=== PATIENT | female | born 1985 | race Caucasian/White ===

== ENCOUNTER 2019-04-21 01:24 | Inpatient (IN) | payer BC ==
[2019-04-21 02:07] VITALS: BMI 29.4
[2019-04-21 02:42] LABS: Hemoglobin 12.1 g/dL (12.0-16.0); Mean Corpuscular HGB CONC 32.4 g/dL (32.0-36.0); Mean Corpuscular Hemoglobin 27.7 pg (27.0-31.0); Mean Corpuscular Volume 85.7 fL (78.0-98.0); Mean Platelet Volume 11.3 fL (7.4-10.4); Platelet Count 171 thou/uL (130-400); RBC Distribution Width 16.6 % (11.5-14.5); Red Blood Cell (RBC) Count 4.35 mill/uL (4.20-5.40)
[2019-04-21] MEDS ORDERED: Ondansetron PF 4 MG/2 ML Vial IVP PRN ×2 (02:49→13:41)
[2019-04-21] MEDS ORDERED: Butorphanol Tartrate 1 MG/ML VIAL SLOW IVP PRN (02:49)
[2019-04-21] MEDS ORDERED: Promethazine HCl 25 MG/ML VIAL IM PRN ×2 (02:49→13:41)
[2019-04-21] MEDS ORDERED: hydrALAZINE 20 MG/ML VIAL SLOW IVP PRN ×2 (02:49→23:36)
[2019-04-21] MEDS ORDERED: Lactated Ringer's 1,000 ML IV SCH ×2 (02:49)
[2019-04-21] MEDS ORDERED: Acetaminophen 500 MG TAB PO PRN (02:49)
[2019-04-21] MEDS ORDERED: Misoprostol 200 MCG TAB RC PRN (03:00)
[2019-04-21] MEDS ORDERED: Methylergonovine 0.2 MG/ML VIAL IM PRN (03:00)
[2019-04-21] MEDS ORDERED: Ibuprofen 800 MG TAB PO PRN (03:00)
[2019-04-21] MEDS ORDERED: NS w/ Oxytocin 10 units 500 ML IV SCH ×2 (03:00)
[2019-04-21] MEDS ORDERED: NS / Oxytocin 40 units/1000ml 1,000 ML IV SCH ×2 (03:00→23:36)
[2019-04-21] MEDS ORDERED: Lidocaine 1% (PF) 30 ML VIAL SC PRN (03:00)
[2019-04-21 03:19] LABS: Hep B Surf Ag Non-Reactive S/CO (NonReactive)
[2019-04-21 05:41] LABS: Syphilis Antibody Nonreactive (Nonreactive); Syphilis Antibody Index 0.04 S/CO (<1.00 Non-Reactive)
--- NOTE | 2019-04-21 06:28 | PDOC.LDHP ---
Labor and Delivery H&P Chief complaint: contractions, loss of fluid (SROM at 0015 this AM) HPI: Was asleep when water broke at home. Contractions started soon after. Current gestational age (weeks): 39 Due date: 04/27/19 Dating criteria: last menstrual period, first trimester ultrasound Grav: 2 Para: 1 Current complications: none Abnormal US findings: No Current medications: pre- vitamins Previous surgical history: none Allergies/Adverse Reactions: Allergies Allergy/AdvReac Type Severity Reaction Status Date / Time No Known Allergies Allergy Unverified 04/21/19 02:00 Social history: none - Physical Exam Vital signs reviewed and normal: yes General: NAD, resting, breathing through contractions Heart: RRR Lungs: CTAB Abdomen: gravid Extremeties: no edema FHT: category 1 [place] contractions every: 3 minutes - Vaginal Exam cm dilated: 8 Effacement: 90% Station: 0 - OB Labs Blood type: B RH: positive Antibody Screen: negative HIV: negative RPR: negative HEPSAg: negative 1 hour GCT: negative GBS: negative Urine drug screen: not done Rubella: immune - Assessment L&D Assessment: term patient in labor - Plan Plan: admit to L&D, labor augmentation if indicated
[2019-04-21] MEDS ORDERED: Fentanyl 4 mcg/Bup 0.1% Cadd 100 ML ONE (12:52)
[2019-04-21] MEDS ORDERED: Lidocaine 1.5%/Epinephrine 1:200,000 5 ML AMPUL IJ ONE (13:29)
[2019-04-21] MEDS ORDERED: diphenhydrAMINE 50 MG/ML VIAL IVP PRN (13:41)
[2019-04-21] MEDS ORDERED: Lactated Ringer's 500 ML IV PRN (13:41)
[2019-04-21] MEDS ORDERED: Acetaminophen 325 MG TAB PO PRN (13:41)
[2019-04-21] MEDS ORDERED: ePHEDrine/0.9% NaCl/PF SYRINGE 50 mg/10 ml SLOW IVP PRN (13:41)
[2019-04-21] MEDS ORDERED: Naloxone HCl 0.4 mg/ml Vial IVP PRN ×2 (13:41)
[2019-04-21] MEDS ORDERED: Fentanyl 4 mcg/Bupivacaine 0.1% Cassette 100 ML EPIDURAL SCH (13:45)
[2019-04-21] MEDS ORDERED: Communication Order-Pharmacy FS SCH (13:45)
--- NOTE | 2019-04-21 16:45 | PDOC.OPDEL ---
OB Operative/Delivery Note Delivery Dr/Surgeon: Philipp Pre-Delivery Diagnosis: active labor, ruptured membrane Procedure/Post Delivery Dx: spontaneous vaginal delivery Weeks gestation: 39 Anesthesia: epidural - Findings A Sex: male (Tight nuchal cord x1, delivered through, no shoulder dystocia, initially poor tone and no cry - quickly responded to stimulation and oral/ nasal suction) - 1 min: 8 - 5 min: 9 - Additional Findings/Plan Placenta delivered: spontaneous Repaired Obstetrical Laceration: none Estimated blood loss: 180 Post delivery plan: routine recovery
[2019-04-21] MEDS ORDERED: diphenhydrAMINE 25 MG CAP PO PRN (23:36)
[2019-04-21] MEDS ORDERED: Benzocaine-Menthol 82.5 ML CAN TOP PRN (23:36)
[2019-04-21] MEDS ORDERED: Milk Of Magnesia 30 ML UDCUP PO PRN (23:36)
[2019-04-21] MEDS ORDERED: Lanolin Ointment 7 GM TUBE TOP PRN (23:36)
[2019-04-21] MEDS ORDERED: HYDROcodone/Acetaminophen 5/325 mg Tablet PO PRN (23:36)
[2019-04-21] MEDS ORDERED: Bisacodyl 10 MG SUPP PR PRN (23:36)
[2019-04-22] MEDS ORDERED: Preparation H Ointment 57 gram tube TOP PRN (00:05)
[2019-04-22] MEDS: Ibuprofen 800 MG TAB PO SCH ×2 (06:28→14:18)
[2019-04-22] MEDS ORDERED: Ferrous Sulfate 325 MG TAB PO SCH (08:00)
[2019-04-22] MEDS ORDERED: Adacel (T-DAP) 0.5 ML SYRINGE IM ONE (09:00)
[2019-04-22] MEDS ORDERED: Docusate Calcium (SURFAK) 240 MG CAP PO SCH (09:00)
--- NOTE | 2019-04-22 09:23 | PDOC.PP ---
Post Progress Note Post Day #: 1 Subjective: Feeling well, no pain, wants to go home this evening PO intake tolerated: yes Flatus: yes Ambulation: yes Weight Weight 188 lb - Physical Examination General: NAD Cardiovascular: no m/r/g, RRR Respiratory: clear to auscultation bilaterally, non-labored breathing Abdominal: + bowel sounds, lochia, no distention, appropriately TTP Result Diagrams: 04/21/19 02:24 Additional Labs: Post Labs Blood Type B POSITIVE 04/21/19 02:24 Hep Bs Antigen Non-Reactive S/CO (NonReactive) 04/21/19 02:24 (1) Vaginal delivery Code(s): O80 - ENCOUNTER FOR FULL-TERM UNCOMPLICATED DELIVERY Status: Acute - Assessment/Plan Routine PP care Continue to work on D/C later today F/U in 6 weeks with me, baby will see me Wednesday
[2019-04-22 19:24] VITALS: BP 119/72; TEMP 97.8
== END 2019-04-22 18:25 | disposition home or self-care (01) | DRG 807 ==
LOC: L&D/OP 01:24 → L&D-LIB 02:38 → L&D 13:24 → 3SW 18:55
PROVIDERS: ADMIT Family Medicine; ATTEND Family Medicine
PROC: 10E0XZZ Delivery of Products of Conception, External Approach (ICD-10-PCS; principal; 2019-04-21)
DX: O69.81X0 Labor and delivery complicated by cord around neck, without compression, not applicable or unspecified (principal); Z37.0 Single live birth; Z3A.39 39 weeks gestation of pregnancy
CPT/HCPCS: 36415; 51702; 82805; 85027; 86780; 86850; 86900; 86901; 87340; 99285; J2590; J3490